=== PATIENT | male | born 1990 | race Caucasian/White ===

== ENCOUNTER 2017-02-11 22:55 | Emergency (ER) | payer OTHER ==
[~2017-02-11] VITALS: Ht 182.9 cm; Wt 83.9 kg
[~2017-02-11 22:55] MED LIST: IBUPROFEN800 M1 PO; PERCOCET 5-3251 EACH PO; TAMIFLU 75MG75 MG PO; ZOFRAN 4 MG TABL4 MG PO; ZOFRAN ODT4 M1 PO
[2017-02-11 23:00] VITALS: BP 123/74
== END 2017-02-12 01:15 | disposition admitted as inpatient to this hospital (09) ==
LOC: ERH 22:55
DX: R10.9 Unspecified abdominal pain (principal); Z53.21 Procedure and treatment not carried out due to patient leaving prior to being seen by health care provider